=== PATIENT | female | born 1960 | race Caucasian/White ===

== ENCOUNTER 2023-11-09 12:17 | Outpatient (CLI) | payer OTHER, SELFPAY ==
--- NOTE | 2023-11-09 12:50 | MM_ITS ---
WS: [id number] BILATERAL 3D TOMOSYNTHESIS DIGITAL SCREENING MAMMOGRAPHY WITH CAD CLINICAL INFORMATION: SCREENING HISTORY: Screening mammogram. No current complaints. COMPARISON: 2021 TECHNIQUE: Bilateral CC and MLO views. FINDINGS: The breasts are composed of heterogeneous fibroglandular density tissue, which can limit the detectio n of small underlying mass lesions. No suspicious mass, asymmetry, calcifications, or architectural d istortion. No evidence of malignancy. IMPRESSION: MM/[place] [id number] BI-RADS: 1-Negative FOLLOW UP: 1 Year Follow-up Recommend return to annual screening mammography.
== END 2023-11-09 12:18 | disposition home or self-care (01) ==
LOC: RAD 12:22
PROVIDERS: PCP Nurse Practitioner; Visit Provider Nurse Practitioner
DX: Z12.31 Encounter for screening mammogram for malignant neoplasm of breast (principal); R92.323 Mammographic fibroglandular density, bilateral breasts
CPT/HCPCS: 77063; 77067

== ENCOUNTER 2024-08-08 15:29 | Emergency (ER) | payer OTHER, SELFPAY ==
[2024-08-08 15:34] VITALS: BP 147/80; PULSE 78; RESP 18; TEMP 36.7; O2SAT 95; BMI 24.7
[2024-08-08 17:39] LABS: Basophils # 0.1 10^3/uL (0.0-0.1); Basophils % 0.6 %; Eosinophils # 0.2 10^3/uL (0.0-0.8); Hematocrit 42.3 % (36-47); Lymphocytes # 2.2 10^3/uL (0.8-4.8); Lymphocytes % 23.1 %; Mean Corpuscular HGB Conc 32.6 g/dL (30-55); Mean Corpuscular Hemoglobin 30.4 pg (27-33); Mean Corpuscular Volume 93.2 fl (85-98); Monocytes # 0.9 10^3/uL (0.2-0.9); Monocytes % 9.3 %; Neutrophils # 5.94 10^3/uL (1.8-7.7); Nucleated Red Blood Cells % 0 %; Platelet Count 380 10^3/cmm (157-399); Red Blood Count 4.54 10^6/uL (3.85-5.65); Red Cell Distribution Width 12.5 % (12.1-15.1); White Blood Count 9.29 10^3/uL (3.29-11.43)
[2024-08-08 18:01] VITALS: BP 123/73; PULSE 69; RESP 16; O2SAT 95
[2024-08-08 18:05] LABS: Alanine Aminotransferase 22 U/L (0-33); Albumin Level 4.3 g/dL (3.5-5.2); Alkaline Phosphatase 116 U/L (35-105); Anion Gap 15.3 (5-19); Aspartate Amino Transferase 17 U/L (0-32); Blood Urea Nitrogen 12 mg/dL (8-23); Calcium 9.6 mg/dL (8.5-10.5); Carbon Dioxide 27 mmol/L (22-29); Chloride 103 mmol/L (98-107); Creatinine Clr Calc Pharmacy 73.8146; Globulin 3.2 g/dL (1.3-4.6); Glomerular Filtration Rate 84.5 mL/min (90-130); Glucose 106 mg/dL (65-115); Lipase 37 U/L (13-60); Osmolality Calculated 292 mOsm/kg (285-295); Potassium 4.3 mmol/L (3.5-5.1); Sodium 141 mmol/L (136-145); Total Bilirubin 0.3 mg/dL (0.15-1.2); Total Protein 7.5 g/dL (6.6-8.7)
--- NOTE | 2024-08-08 20:19 | XRR_ITS ---
PROCEDURE INFORMATION: Exam: XR Chest Exam date and time: 08/08/2024 8:31 PM Age: 64 years old Clinical indication: Shortness of breath TECHNIQUE: Imaging protocol: Radiologic exam of the chest. Views: 1 view. COMPARISON: No relevant prior studies available. FINDINGS: Lungs: Irregular ring-like opacity in the right lung base incompletely assessed on this examination. Pleural spaces: Unremarkable. No pleural effusion. No pneumothorax. Heart/Mediastinum: Unremarkable. No cardiomegaly. Bones/joints: Unremarkable. XR/XR chest 1V portable [id number] IMPRESSION: Irregular ring-like opacity in the right lung base incompletely assessed on this examination.
[2024-08-08 20:37] LABS: Bilirubin Urine Negative (Negative); Blood Urine Trace (Negative); Glucose Urine UA Negative (Normal); Ketones Urine Negative (Negative); Leukocyte Esterase Urine 2+ (Negative); Nitrate Urine Negative (Negative); Protein Urine Trace (Negative); Specific Gravity, Urine 1.024 (1.005-1.030); Urine Appearance Cloudy (CLEAR); Urine Color Yellow (Yellow); pH Urine 5.5 (5-7)
[2024-08-08 20:40] LABS: Add Urine Microscopic? YES; Bacteria Urine 4+ /hpf; Hyaline Casts Urine 2.87 /lpf; RBC Urine 0-2 /hpf (0-2); Squamous Epithelial Cell Urine 51-100 /hpf (0-5); WBC Urine >100 /hpf (0-5)
[2024-08-08 20:41] VITALS: BP 134/83; PULSE 75; O2SAT 95
[2024-08-08 20:42] VITALS: O2SAT 95
--- NOTE | 2024-08-08 20:54 | ED_ITS ---
HPI - COVID 2 General: Chief Complaint: COVID symptoms Stated Complaint: stomach pain, diarhhea, headache, Time Seen by Provider: 08/08/24 20:16 History of Present Illness: 64-year-old female who presents the [facility] room with multiple symptoms. She states she started having headaches over a week ago. She then developed diarrhea over the last few days. She has had some nausea. No cough. No shortness of breath. No known fevers. COVID Results: 2 Coronavirus (PCR) Pending 08/08/24 20:29 Related Data Previous Rx's Medication Instructions Recorded cefdinir 300 mg capsule 300 mg PO BID 7 days #14 caps 08/08/24 ondansetron 8 mg disintegrating 8 mg PO Q6H #14 tabs 08/08/24 tablet Allergies Allergy/AdvReac Type Severity Reaction Status Date / Time amoxicillin Allergy ALGY-Hives Verified 08/08/24 15:40 Review of Systems 2 Narrative: Constitutional symptoms: Negative except as documented in HPI. Skin symptoms: Negative except as documented in HPI. Eye symptoms: Negative except as documented in HPI. ENMT symptoms: Negative except as documented in HPI. Respiratory symptoms: Negative except as documented in HPI. Cardiovascular symptoms: Negative except as documented in HPI. Gastrointestinal symptoms: Negative except as documented in HPI. Genitourinary symptoms: Negative except as documented in HPI. Musculoskeletal symptoms: Negative except as documented in HPI. Neurologic symptoms: Negative except as documented in HPI. Psychiatric symptoms: Negative except as documented in HPI. Endocrine symptoms: Negative except as documented in HPI. Physical Exam 2 Narrative: EXAM NARRATIVE: General: Alert, no acute distress. Skin: Warm, dry. Head: Normocephalic, atraumatic. Neck: Supple, trachea midline. Eye: Extraocular movements are intact. Ears, nose, mouth and throat: mucosa moist. Cardiovascular: Regular, Normal peripheral perfusion. Respiratory: Lungs are clear to auscultation, respirations are non-labored, breath sounds are equal, Symmetrical chest wall expansion. Gastrointestinal: Soft, Nontender, Non distended Musculoskeletal: Normal ROM, no deformity. Neurological: Alert and oriented, No focal neurological deficit observed. Psychiatric: Cooperative, appropriate mood & affect. Course 2 Vital Signs: Vital signs: Vital Signs Temperature 98.1 F 08/08/24 15:34 Pulse Rate 75 08/08/24 20:41 Respiratory Rate 16 08/08/24 18:01 Blood Pressure 134/83 08/08/24 20:41 Pulse Oximetry 95 08/08/24 20:42 Oxygen Delivery Me thod Room Air 08/08/24 20:42 MDM - COVID Medical Decision Making Medical decision making: Differential diagnosis for this patient with nausea and diarrhea including but not limited to and based on the above HPI, review of systems and physical exam: Urinary tract infection. Appendicitis. Cholecystis. colitis. small bowel obstruction. crohn's flare. pancreatitis. gastritis. peptic ulcer. cyclic vomiting. Viral illness. Influenza. COVID. - Workup - labwork and imaging ordered to evaluate, rule in and rule out above pathologies. Lab Review: Laboratory results were reviewed and interpreted by myself the emergency room physician. No leukocytosis. No anemia. No renal failure. She does have a urinary tract infection. I reviewed the patient's medical record. Reexamination: Patient remained stable. No increased work of breathing. No altered mental status. No focal motor deficits. Assessment and plan: Urinary tract infection Gastroenteritis ? Oral Zofran and Omnicef here in the emergency room. - Discharged home - Discussed plan with patient. Answered any questions. - Evaluation and treatment of this problem were appropriate in the emergency setting. Lab Data 08/08/24 17:31 08/08/24 17:31 Laboratory Results WBC 9.29 10^3/uL (3.29-11.43) 08/08/24 17:31 RBC 4.54 10^6/uL (3.85-5.65) 08/08/24 17:31 Hgb 13.80 g/dL (11.27-16.99) 08/08/24 17:31 Hct 42.3 % (36-47) 08/08/24 17:31 MCV 93.2 fl (85-98) 08/08/24 17: MCH 30.4 pg (27-33) 08/08/24 17: MCHC 32.6 g/dL (30-55) 08/08/24 17:31 RDW 12.5 % (12.1-15.1) 08/08/24 17:31 Plt Count 380 10^3/cmm (157-399) 08/08/24 17: MPV 8.0 fL (7.4-10.4) 08/08/24 17:31 Neut % (Auto) 64.0 % 08/08/24 17:31 Lymph % (Auto) 23.1 % 08/08/24 17:31 [place] % (Auto) 9.3 % 08/08/24 17:31 Eos % (Auto) 2.0 % 08/08/24 17:31 Baso % (Auto) 0.6 % 08/08/24 17:31 Neut # (Auto) 5.94 10^3/uL (1.8-7.7) 08/08/24 17:31 Lymph # (Auto) 2.2 10^3/uL (0.8-4.8) 08/08/24 17:31 [place] # (Auto) 0.9 10^3/uL (0.2-0.9) 08/08/24 17:31 Eos # (Auto) 0.2 10^3/uL (0.0-0.8) 08/08/24 17: Baso # (Auto) 0.1 10^3/uL (0.0-0.1) 08/08/24 17:31 Nucleated RBC % (auto) 0 % 08/08/24 17: Nucleated RBCs # 0.0 /100WBC 08/08/24 17:31 Sodium 141 mmol/L (136-145) 08/08/24 17:31 Potassium 4.3 mmol/L (3.5-5.1) 08/08/24 17:31 Chloride 103 mmol/L (98-107) 08/08/24 17:31 Carbon Dioxide 27 mmol/L (22-29) 08/08/24 17:31 Anion Gap 15.3 (5-19) 08/08/24 17:31 BUN 12 mg/dL (8-23) 08/08/24 17:31 Creatinine 0.7 mg/dL (0.5-0.9) 08/08/24 17:31 GFR Calculation 84.5 mL/min (90-130) L 08/08/24 17:31 Glucose 106 mg/dL (65-115) 08/08/24 17:31 Calculated Osmolality 292 mOsm/kg (285-295) 08/08/24 17:31 Calcium 9.6 mg/dL (8.5-10.5) 08/08/24 17:31 Total Bilirubin 0.3 mg/dL (0.15-1.2) 08/08/24 17:31 AST 17 U/L (0-32) 08/08/24 17:31 ALT 22 U/L (0-33) 08/08/24 17:31 Alkaline Phosphatase 116 U/L (35-105) H 08/08/24 17:31 Total Protein 7.5 g/dL (6.6-8.7) 08/08/24 17:31 Albumin 4.3 g/dL (3.5-5.2) 08/08/24 17:31 Globulin 3.2 g/dL (1.3-4.6) 08/08/24 17:31 Lipase 37 U/L (13-60) 08/08/24 17:31 Urine Color Yellow (Yellow) 08/08/24 20: Urine Appearance Cloudy (CLEAR) A 08/08/24 20: Urine pH 5.5 (5-7) 08/08/24 20: Ur Specific [place] 1.024 (1.005-1.030) 08/08/24 20: Urine Protein Trace (Negative) A 08/08/24 20: Urine Glucose (UA) Negative (Normal) 08/08/24 20: Urine Ketones Negative (Negative) 08/08/24: Urine Blood Trace (Negative) A 08/08/24: Urine Nitrate Negative (Negative) 08/08/24 20: Urine Bilirubin Negative (Negative) 08/08/24 20: Urine Urobilinogen 1.0 mg/dL (Negative) 08/08/24 20: Ur Leukocyte Esterase 2+ (Negative) A 08/08/24 20: Urine RBC 0-2 /hpf (0-2) 08/08/24 20: Urine WBC >100 /hpf (0-5) H 08/08/24 20: Ur Squamous Epith Cells 51-100 /hpf (0-5) 08/08/24: Amorphous Sediment Not Reportable 08/08/24 20: Urine Bacteria 4+ /hpf (NONE) H 08/08/24 20: Hyaline Casts 2.87 /lpf 08/08/24 20:29 2 Coronavirus (PCR) Pending 08/08/24: XR interpretation done by ED provider, pending radiology final review Discharge Plan Discharge Patient Disposition: Home Clinical Impression: Urinary tract infection, Viral gastroenteritis Condition: Stable Prescriptions: New ondansetron 8 mg tablet,disintegrating 8 mg PO Q6H Qty: 14 0RF Rx Instructions: Take 1/2-1 tab every 6 hours as needed for nausea and vomiting cefdinir 300 mg capsule 300 mg PO BID 7 Days Qty: 14 0RF Discharge Orders: Discharge ED (Routine); Ordered 08/08/24 Ordered By: Araceli Chavez Referrals: Mayda Pulliam FNP [Primary Care Provider] - Discharge Diet: Usual diet Discharge Activity: Increase activity as tolerated Patient Instructions: Urinary Tract Infection in Women (ED), Gastroenteritis (ED) Activity Restrictions/Additional Instructions: Thank you for choosing [facility] for your healthcare needs today. Please realize this is an emergency room and that we are providing you with a medical screening exam and this may not be complete and all inclusive of all the testing and or work up that you may need to determine your ailment or severity of your illness. You have been screened and evaluated and felt safe for discharge. Health conditions do change or evolve sometimes and as such it is important that you follow up with your Primary Doctor to be re checked, 3-5 days is a general good time frame for follow up. You are always welcome to return to the ED for re assessment if your symptoms are worsening or you have new concerns Coding Level of Care Code ED Field Assistant for Opal Mohan
[2024-08-08] MEDS: ondansetron 4 MG Tablet PO (21:02)
[2024-08-08] MEDS: cefdinir 300 MG CAPSULE PO (21:02)
[2024-08-08 21:08] VITALS: BP 129/83; PULSE 83; O2SAT 93
[2024-08-08 21:12] LABS: Covid PCR NEGATIVE (Negative); Influenza A NEGATIVE (Negative); Influenza B NEGATIVE (Negative); Respiratory Syncytial Virus Ce NEGATIVE (Negative)
== END 2024-08-08 21:09 | disposition home or self-care (01) ==
PROVIDERS: Physician Assistant; Emergency Provider Emergency Medicine; PCP Nurse Practitioner
DX: N39.0 Urinary tract infection, site not specified (principal); A08.4 Viral intestinal infection, unspecified; Z11.52 Encounter for screening for COVID-19
CPT/HCPCS: 0241U; 36415; 71045; 80053; 81001; 83690; 85025; 99284; Q0162

== ENCOUNTER 2024-11-29 12:22 | Outpatient (CLI) | payer OTHER, SELFPAY ==
--- NOTE | 2024-11-29 12:26 | MM_ITS ---
WS: [id number] VIEWS: MLO and CC views both breasts. 3D digital tomosynthesis is also included in this exam. Comparison made with prior exam of 11/09/2023, 06/27/2014, 09/16/2016, 03/17/2019, 02/26/2021, 03/10/2022.. Findings: The breasts are heterogeneously dense, which may obscure small masses. No suspicious mass, tumor calcification or architectural distortion. MM/MM scr BI tomosynthesis [id number] Impression: BI-RADS: 2 - Benign FOLLOW-UP: 1 Year Follow-up This mammogram was also analyzed by the Computer Aided Detection System R2 Imag e Die Cutting Machine Operator.
== END 2024-11-29 12:23 | disposition home or self-care (01) ==
LOC: RAD 12:25
PROVIDERS: PCP Nurse Practitioner; Visit Provider Nurse Practitioner
DX: Z12.31 Encounter for screening mammogram for malignant neoplasm of breast (principal); R92.333 Mammographic heterogeneous density, bilateral breasts
CPT/HCPCS: 77063; 77067